=== PATIENT | male | born 1995 | race Caucasian/White ===

== ENCOUNTER 2016-05-02 21:15 | Emergency (ER) | payer OTHER ==
[~2016-05-02] VITALS: Ht 185.4 cm; Wt 89.5 kg
[2016-05-02 21:26] VITALS: TEMP 99.8
[2016-05-02 22:32] LABS: INFLUENZA B NEGATIVE
[2016-05-02 23:20] VITALS: BP 119/68; PULSE 83
== END 2016-05-02 23:22 | disposition home or self-care (01) ==
LOC: COL.ER 21:15
PROVIDERS: Emergency Medicine
DX: R05 Cough (principal); R50.9 Fever, unspecified; R09.89 Other specified symptoms and signs involving the circulatory and respiratory systems; F17.210 Nicotine dependence, cigarettes, uncomplicated

== ENCOUNTER → 2018-10-24 | Outpatient (CLI) | payer OTHER | LOC: MHCPAIN 15:19 | DX: G89.29 Other chronic pain (principal); M47.817 Spondylosis without myelopathy or radiculopathy, lumbosacral region; M54.16 Radiculopathy, lumbar region; M53.3 Sacrococcygeal disorders, not elsewhere classified | CPT/HCPCS: G0463 ==

== ENCOUNTER → 2018-12-25 | Outpatient (CLI) | payer OTHER | LOC: MHCPAIN 14:58 | DX: G89.29 Other chronic pain (principal); M47.817 Spondylosis without myelopathy or radiculopathy, lumbosacral region; M54.16 Radiculopathy, lumbar region; M53.3 Sacrococcygeal disorders, not elsewhere classified | CPT/HCPCS: G0463 ==

== ENCOUNTER → 2018-12-27 | Outpatient (CLI) | payer OTHER | LOC: MHCPAIN 13:44 | DX: M47.817 Spondylosis without myelopathy or radiculopathy, lumbosacral region (principal); M54.16 Radiculopathy, lumbar region | CPT/HCPCS: J1100; Q9967 ==

== ENCOUNTER → 2019-01-14 | Outpatient (CLI) | payer OTHER | LOC: MHCPAIN 09:52 | DX: G89.29 Other chronic pain (principal); M47.817 Spondylosis without myelopathy or radiculopathy, lumbosacral region; M54.16 Radiculopathy, lumbar region; M53.3 Sacrococcygeal disorders, not elsewhere classified | CPT/HCPCS: G0463 ==

== ENCOUNTER → 2019-01-31 | Outpatient (CLI) | payer OTHER | LOC: MHCPAIN 08:29 | DX: M47.817 Spondylosis without myelopathy or radiculopathy, lumbosacral region (principal); M54.16 Radiculopathy, lumbar region | CPT/HCPCS: J1100; Q9967 ==

== ENCOUNTER → 2019-02-19 | Outpatient (CLI) | payer OTHER | LOC: MHCPAIN 15:19 | DX: G89.29 Other chronic pain (principal); M47.817 Spondylosis without myelopathy or radiculopathy, lumbosacral region; M53.3 Sacrococcygeal disorders, not elsewhere classified | CPT/HCPCS: G0463 ==

== ENCOUNTER → 2019-03-11 | Outpatient (CLI) | payer OTHER | LOC: MHCPAIN 13:22 | DX: M54.5 Low back pain (principal) ==

== ENCOUNTER → 2019-04-02 | Outpatient (CLI) | payer OTHER | LOC: MHCPAIN 09:24 | DX: M47.817 Spondylosis without myelopathy or radiculopathy, lumbosacral region (principal); M53.3 Sacrococcygeal disorders, not elsewhere classified | CPT/HCPCS: G0463 ==

== ENCOUNTER → 2019-04-04 | Outpatient (CLI) | payer OTHER | LOC: MHCPAIN 10:38 | DX: M54.5 Low back pain (principal) ==

== ENCOUNTER → 2019-04-25 | Outpatient (CLI) | payer OTHER | LOC: MHCPAIN 07:40 | DX: M54.5 Low back pain (principal) | CPT/HCPCS: J1100; J2250; J3010 ==

== ENCOUNTER → 2019-05-02 | Outpatient (CLI) | payer OTHER | LOC: MHCPAIN 07:44 | DX: M54.5 Low back pain (principal) | CPT/HCPCS: J1100; J2250; J3010 ==